=== PATIENT | male | born 2000 | race Caucasian/White ===

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

== ENCOUNTER 2018-04-30 20:12 | Emergency (ER) | payer BC ==
[2018-04-30 20:40] VITALS: BP 123/76
--- NOTE | 2018-04-30 21:22 | UC ---
General HPI - HPI Summary HPI Summary: 18 yo gentleman with sore throat, sniffles, sinus congestion x approx 4 days. Discomfort seems to be worse R side of throat, and R ear. Fever at onset, not now. Minimal cough, no sob. No GI issues. No h/a, vis / aud changes. R ear a little congested. No rash. - History of Current Complaint Chief Complaint: UCRespiratory Stated Complaint: THROAT COMPLAINT Time Seen by Provider: 04/30/18 21:20 Hx Obtained From: Patient Pain Intensity: 4 - Allergy/Home Medications Allergies/Adverse Reactions: Allergies Allergy/AdvReac Type Severity Reaction Status Date / Time No Known Allergies Allergy Verified 04/30/18 20:40 Home Medications: Home Medications Guaifenesin/Pseudoephedrne HCl [Mucinex D ER 1,200-120 mg Tab] 1 tab PO DAILY PRN 04/30/18 [History Confirmed 04/30/18] Levothyroxine TAB* [Synthorid 112 MCG TAB*] 112 mcg PO DAILY 04/30/18 [History Confirmed 04/30/18] PMH/Surg Hx/FS Hx/Imm Hx Previously Healthy: Yes - Surgical History Surgical History: None - Family History Known Family History: Negative: Cardiac Disease, Diabetes - Social History Alcohol Use: None Substance Use Type: None Smoking Status (MU): Never Smoked Tobacco Review of Systems All Other Systems Reviewed And Are Negative: Yes Constitutional: Positive: Other - see hpi Physical Exam Triage Information Reviewed: Yes Appearance: Well-Appearing, Well-Nourished Vital Signs: Initial Vital Signs Temp 97.7 F 04/30/18 20:33 Pulse 71 04/30/18 20:33 Resp 16 04/30/18 20:33 BP 123/76 04/30/18 20:33 Pulse Ox 99 04/30/18 20:33 Vital Signs Reviewed: Yes Eye Exam: Normal ENT: Positive: Other - R eac + cerumen, tm as visible is crane, dull, rtx'd. EAC with mild abrasion (has used q-tips) L eac clear, Tm crane Post pharynx + redness, uvula midline. Tender R submand lymph node area. No stridor. Nontoxic general appearance. Neck exam: Normal Neck: Positive: Supple, Nontender Respiratory Exam: Normal Respiratory: Positive: Chest non-tender, Lungs clear, Normal breath sounds, No respiratory distress, No accessory muscle use Cardiovascular Exam: Normal Cardiovascular: Positive: RRR, No Murmur, Pulses Normal, Brisk Capillary Refill Abdominal Exam: Normal Abdomen Description: Positive: Nontender Musculoskeletal Exam: Normal Neurological Exam: Normal Psychological Exam: Normal Skin Exam: Normal Course/Dx - Course Course Of Treatment: Reports that approx 6 mo ago had blood test, indicating past hx of EBV / mono. Throat cx sent. RST neg. Will start augmentin, d/w pt. Aware to minimize q-tip use. Questions as posed answered to the best of my ability. - Diagnoses Provider Diagnosis: Pharyngitis Discharge - Sign-Out/Discharge Documenting (check all that apply): Patient Departure All imaging exams completed and their final reports reviewed: No Studies - Discharge Plan Condition: Stable Disposition: HOME Prescriptions: Amoxicillin/Clavulanate TAB* [Augmentin TAB 875*] 875 mg PO BID #19 tab Neomyc/Polym/HC 1% OTIC SUSP* [Cortisporin Otic Susp 1%*] 4 drop RIGHT EAR TID 5 Days #1 btl Patient Education Materials: Pharyngitis (ED) Referrals: No Primary Care Phys,NOPCP [Primary Care Provider] - Additional Instructions: Follow up with your primary care physician, per routine. Please go to the Emergency Department for any problems. Drink plenty of fluids. - Billing Disposition and Condition Condition: STABLE Disposition: Home
[2018-04-30] MEDS ORDERED: Amoxicillin/Clavulanate TAB* 875 MG PO ONE (21:34)
--- NOTE | 2018-05-02 15:41 | UC ---
- Progress Note Progress Note: 05/02/2018 Preliminary Throat culture: positive for Strep G Still waiting for final report. No change Alexandra Morales PA-C Course/Dx - Diagnoses Provider Diagnoses: Pharyngitis Discharge - Sign-Out/Discharge Documenting (check all that apply): Post-Discharge Follow Up All imaging exams completed and their final reports reviewed: No Studies - Discharge Plan Condition: Stable Disposition: HOME Prescriptions: Amoxicillin/Clavulanate TAB* [Augmentin TAB 875*] 875 mg PO BID #19 tab Neomyc/Polym/HC 1% OTIC SUSP* [Cortisporin Otic Susp 1%*] 4 drop RIGHT EAR TID 5 Days #1 btl Patient Education Materials: Pharyngitis (ED) Referrals: No Primary Care Phys,NOPCP [Primary Care Provider] - Additional Instructions: Follow up with your primary care physician, per routine. Please go to the Emergency Department for any problems. Drink plenty of fluids. - Billing Disposition and Condition Condition: STABLE Disposition: Home
--- NOTE | 2018-05-03 14:58 | UC ---
- Progress Note Progress Note: Throat culture final with Group C strep. Pt was started on Augmentin - no change. Course/Dx - Diagnoses Provider Diagnoses: Pharyngitis Discharge - Sign-Out/Discharge Documenting (check all that apply): Post-Discharge Follow Up All imaging exams completed and their final reports reviewed: No Studies - Discharge Plan Condition: Stable Disposition: HOME Prescriptions: Amoxicillin/Clavulanate TAB* [Augmentin TAB 875*] 875 mg PO BID #19 tab Neomyc/Polym/HC 1% OTIC SUSP* [Cortisporin Otic Susp 1%*] 4 drop RIGHT EAR TID 5 Days #1 btl Patient Education Materials: Pharyngitis (ED) Referrals: No Primary Care Phys,NOPCP [Primary Care Provider] - Additional Instructions: Follow up with your primary care physician, per routine. Please go to the Emergency Department for any problems. Drink plenty of fluids. - Billing Disposition and Condition Condition: STABLE Disposition: Home
== END 2018-04-30 21:55 | disposition home or self-care (01) ==
LOC: UCEAST 20:12
DX: J02.0 Streptococcal pharyngitis (principal); R09.81 Nasal congestion; S00.411A Abrasion of right ear, initial encounter; X58.XXXA Exposure to other specified factors, initial encounter; Y92.9 Unspecified place or not applicable
CPT/HCPCS: 87070; 87077; 87651; 99212; A9270-GY; G0463